=== PATIENT | female | born 1985 | race Caucasian/White ===

== ENCOUNTER 2017-02-16 23:38 | Inpatient (IN) ==
[2017-02-17 00:24] LABS: Basophils # 0.1 K/mcL (0.0-0.2); Basophils % 0.4 %; Eosinophils % 0.3 %; Hemoglobin 14.5 g/dL (11.5-15.4); Immature Granulocytes % 0.9 % (0-4); Immature Platelets 4.4 % (1.1-6.1); Lymphocytes # 3.4 K/mcL (0.6-4.6); Lymphocytes % 22.6 %; Mean Corpuscular HGB Conc 33.7 g/dL (31.6-35.5); Mean Corpuscular Hemoglobin 28.6 pg (28.0-33.3); Mean Corpuscular Volume 84.8 fL (83.0-100.0); Mean Platelet Volume 9.8 fL (9.4-12.4); Monocytes # 0.7 K/mcL (0.0-1.3); Monocytes % 4.5 %; Neutrophils # 10.7 K/mcL (1.6-8.9); Platelet Count 259 K/mcL (140-400); Red Blood Count 5.07 M/mcL (3.82-4.97); Red Cell Distribution Width 12.6 % (11.5-14.5); Segmented Neutrophils % 71.3 %
[2017-02-17 00:39] LABS: Alanine Aminotransferase 15 Units/L (0-55); Albumin 3.4 g/dL (3.5-5.0); Albumin/Globulin Ratio 0.9 (1.1-2.2); Alkaline Phosphatase 116 Units/L (38-126); Aspartate Amino Transferase 12 Units/L (5-34); BUN/Creatinine Ratio 11 (6-26); Bilirubin,Total 0.2 mg/dL (0.2-1.2); Blood Urea Nitrogen 8 mg/dL (7-20); Calcium 9.1 mg/dL (8.6-10.8); Carbon Dioxide 25 mEq/L (19-29); Chloride 104 mEq/L (98-109); Globulin 3.6 g/dL (2.4-3.5); Glucose 107 mg/dL (70-99); Osmolality,Calculated 283 (280-300); Potassium 3.3 mEq/L (3.5-4.5); Sodium 137 mEq/L (136-145); eGFR For African Americans > 60 (> 60); eGFR For Non-African Americans > 60 (> 60)
[2017-02-17 00:55] LABS: Acetaminophen < 1.0 mcg/mL (10-30); Ethanol < 10 mg/dL (0-10); Salicylate < 5.0 mg/dL (15-30)
[2017-02-17] MEDS ORDERED: *HR* LORazepam 0.5 MG TABLET PO ONE (02:10)
--- NOTE | 2017-02-17 02:13 | Emergency Department Note ---
Disposition Clinical Impression: Suicidal ideation Disposition: Admitted As Inpatient Condition: Fair Psych HPI - General Chief Complaint: ED Psychiatric Symptoms Stated Complaint: depression Time Seen by Provider: 02/17/17 01:43 Source: patient Mode of arrival: private vehicle Limitations: no limitations Nursing Notes Reviewed: Yes Vital Signs Reviewed: Yes - History of Present Illness Pt complaint: suicidal ideation, feels depressed, anxiety Onset (ago): week(s) Duration: constant, getting worse History of similar episodes: Yes Improves with: none Worsens with: none Context: significant life stressor Alleged intoxication: No Associated Psychiatric Symptoms: depression, suicidal ideation, racing thoughts , anxiety Associated symptoms: Reports: denies other symptoms. Denies: confusion, headache, shortness of breath, nausea, vomiting, syncope, insomnia Traumatic symptoms: denies traumatic injury Treatments prior to arrival: none Self harm or harm to others: admits thoughts of self harm, denies having a plan - Related Data Home Medications Medication Instructions Recorded Confirmed Mirtazapine [Remeron] 15 mg PO HS 02/17/17 02/17/17 Allergies Allergy/AdvReac Type Severity Reaction Status Date / Time codeine Allergy Swelling Verified 02/16/17 23:58 of Lip/Tongue/Throat All systems ED: reviewed and negative except as stated. Constitutional: Denies: fever, chills, night sweats Eyes: Denies: vision change Cardiovascular: Denies: chest pain Respiratory: Denies: dyspnea Gastrointestinal: Denies: abdominal pain, nausea, vomiting, diarrhea Genitourinary: Denies: dysuria Musculoskeletal: Denies: back pain, neck pain, joint swelling, arthralgia Integumentary: Denies: rash Neurological: Denies: headache, confusion, abnormal gait, vertigo Psychiatric: Reports: as per HPI, anxiety, depression, suicidal thoughts Hematological/Lymphatic: Denies: easy bleeding, easy bruising Past Medical History - Past Medical History Attestation: Yes The following information was validated with the patient. Source: patient Medical history: Reports: diabetes Psychiatric history: Reports: anxiety, bipolar, depression, panic disorder, PTSD , other - Social History Smoking Status: Current every day smoker Smokeless Tobacco Status: No Alcohol use: Reports: none Drug use: Reports: none Physical Exam - General Limitations: no limitations General appearance: alert, in no apparent distress, anxious - Head Head exam: atraumatic, normocephalic, normal inspection - Eye Eye exam: Present: normal appearance, PERRL. Absent: scleral icterus, conjunctival injection, periorbital swelling - ENT ENT exam: normal exam, normal oropharynx, mucous membranes moist - Neck Neck exam: Present: normal inspection, full ROM, trachea midline. Absent: meningismus - Chest Chest inspection: Present: normal inspection - Respiratory Respiratory exam: Present: normal lung sounds bilaterally. Absent: respiratory distress - Cardiovascular Cardiovascular exam: Present: regular rate, normal rhythm, normal heart sounds - Extremities Exam Extremities exam: Present: normal inspection - Back Exam Back exam: Present: normal inspection, full ROM - Neurological Exam Neurological exam: Present: alert, oriented X3, CN II-XII intact, normal gait - Psychiatric Psychiatric exam: Present: normal affect, depressed, anxious - Skin Skin exam: Present: warm, dry, intact, normal color Course Course Narrative: Patient is depressed, tearful, anxious, and also seems a bit paranoid. She was brought in by her cousin for evaluation of suicidal ideation. Patient has a history of depression and has been admitted at a hospital in [place] when she used to live there. She does not currently take medications for depression but states that she has taken them in the past. She states that she stopped taking them because they did not work. Her current significant life stressor is that her of 10 years kicked her out of the house along with their 1- year-old daughter for allegedly cheating on him. Patient states that she has not been unfaithful. She states that she is very angry and depressed. She has had thoughts of hurting herself. She does not describe a specific plan to me. She seems somewhat paranoid and states, "I do not want people looking at me." She is very anxious about any men entering her room and states, "I do not want anyone to touch me." She intermittently makes eye contact and is very tearful and often has a hard time explaining things due to crying. Physical exam is unremarkable. Vitals are normal. Labs have been ordered. Patient has also been seen by Dr. Navneet Bazan. She agrees with the assessment and plan. 1A has been consulted. Patient does have mild leukocytosis along with pyuria, however, she also has many squamous epithelial cells in the urine sample. A culture has been ordered along with a dose of Rocephin. Patient denies dysuria , hematuria, increased urinary frequency or urgency, which also denies abdominal pain and has had no fever, chills, nausea or vomiting. Thus, I do not think that the bacteriuria is the cause of her depression, or suicidal ideation. - Consultations Consultation #1: 1A consulted Time: 03:07 Vital Signs Temperature 97.8 F 02/16/17 23:58 Pulse Rate 72 02/16/17 23:58 Respiratory Rate 20 02/16/17 23:58 Blood Pressure 120/75 02/16/17 23:58 O2 Sat by Pulse Oximetry 97 02/16/17 23:58 Temperature 97.8 F 02/16/17 23:58 Pulse Rate 72 02/16/17 23:58 Respiratory Rate 0 02/17/17 04:21 Blood Pressure 0/0 02/17/17 04:21 O2 Sat by Pulse Oximetry 97 02/16/17 23:58 Oxygen Delivery Oxygen Delivery Room Air Psych - Lab Data Lab results reviewed: Yes I reviewed the patient's lab results. Result diagrams: 02/17/17 00:16 02/17/17 00:16 Lab Results 02/17/17 02/17/17 02/17/17 Range/Units 00:16 00:16 02:25 WBC 15.0 H (4.3-11.1) K/mcL RBC 5.07 H (3.82-4.97) M/mcL Hgb 14.5 (11.5-15.4) g/dL Hct 43.0 (35.3-44.9) % MCV 84.8 (83.0-100.0) fL MCH 28.6 (28.0-33.3) pg MCHC 33.7 (31.6-35.5) g/dL RDW 12.6 (11.5-14.5) % Plt Count 259 (140-400) K/mcL MPV 9.8 (9.4-12.4) fL Immature Gran % 0.9 (0-4) % Seg Neutrophils % 71.3 % Lymphocytes % 22.6 % Monocytes % 4.5 % Eosinophils % 0.3 % Basophils % 0.4 % Neutrophils # 10.7 H (1.6-8.9) K/mcL Lymphocytes # 3.4 (0.6-4.6) K/mcL Monocytes # 0.7 (0.0-1.3) K/mcL Eosinophils # 0.0 (0.0-0.6) K/mcL Basophils # 0.1 (0.0-0.2) K/mcL Immature Plt Fraction 4.4 (1.1-6.1) % Sodium 137 (136-145) mEq/L Potassium 3.3 L (3.5-4.5) mEq/L Chloride 104 (98-109) mEq/L Carbon Dioxide 25 (19-29) mEq/L BUN 8 (7-20) mg/dL Creatinine 0.74 (0.57-1.11) mg/dL Est GFR ( Amer) > 60 (> 60) Est GFR (Non-Af Amer) > 60 (> 60) BUN/Creatinine Ratio 11 (6-26) Glucose 107 H (70-99) mg/dL Calculated Osmolality 283 (280-300) Calcium 9.1 (8.6-10.8) mg/dL Total Bilirubin 0.2 (0.2-1.2) mg/dL AST 12 (5-34) Units/L ALT 15 (0-55) Units/L Alkaline Phosphatase 116 (38-126) Units/L Serum Total Protein 7.0 (6.0-8.3) g/dL Albumin 3.4 L (3.5-5.0) g/dL Globulin 3.6 H (2.4-3.5) g/dL Albumin/Globulin Ratio 0.9 L (1.1-2.2) TSH 0.580 (0.350-4.840) mcIU/mL Urine Color Yellow (Yellow) Urine Clarity Cloudy A (Clear) Urine pH 6.5 (5.0-8.0) pH Units Ur Specific [place] 1.005 L (1.010-1.025) Urine Protein Negative (Neg-Trace) mg/dL Urine Glucose (UA) Normal (Normal) mg/dL Urine Ketones Negative (Negative) mg/dL Urine Blood Negative (Negative) Urine Nitrite Negative (Negative) Urine Bilirubin Negative (Negative) Urine Urobilinogen Normal (Normal) mg/dL Ur Leukocyte Esterase Large H (Negative) Urine Microscopic RBC 0-3 (0-3) per hpf Urine Microscopic WBC 30-50 H (0-3) per hpf Ur Squamous Epith Cells Many H (None-Few) per lpf Urine Bacteria Moderate H (None-Few) per hpf Hyaline Casts None Seen (None-Few) per lpf Ur Culture Indicated? YES A (NO) Urine Test (Negative) Salicylates < 5.0 L (15-30) mg/dL Urine Opiates Screen (Yhkosv=919) ng/mL Acetaminophen < 1.0 L (10-30) mcg/mL Ur Barbiturates Screen (Myhoxw=548) ng/mL Ur Phencyclidine Scrn (Cutoff=25) ng/mL Ur Amphetamines Screen (Uuldbf=1685) ng/mL U Benzodiazepines Scrn (Xpaepj=569) ng/mL Urine Cocaine Screen (Cutoff= 300) ng/mL U Marijuana (THC) Screen (Cutoff = 50) ng/mL Ethyl Alcohol < 10 (0-10) mg/dL 02/17/17 02/17/17 Range/Units 02:25 02:25 WBC (4.3-11.1) K/mcL RBC (3.82-4.97) M/mcL Hgb (11.5-15.4) g/dL Hct (35.3-44.9) % MCV (83.0-100.0) fL MCH (28.0-33.3) pg MCHC (31.6-35.5) g/dL RDW (11.5-14.5) % Plt Count (140-400) K/mcL MPV (9.4-12.4) fL Immature Gran % (0-4) % Seg Neutrophils % % Lymphocytes % % Monocytes % % Eosinophils % % Basophils % % Neutrophils # (1.6-8.9) K/mcL Lymphocytes # (0.6-4.6) K/mcL Monocytes # (0.0-1.3) K/mcL Eosinophils # (0.0-0.6) K/mcL Basophils # (0.0-0.2) K/mcL Immature Plt Fraction (1.1-6.1) % Sodium (136-145) mEq/L Potassium (3.5-4.5) mEq/L Chloride (98-109) mEq/L Carbon Dioxide (19-29) mEq/L BUN (7-20) mg/dL Creatinine (0.57-1.11) mg/dL Est GFR ( Amer) (> 60) Est GFR (Non-Af Amer) (> 60) BUN/Creatinine Ratio (6-26) Glucose (70-99) mg/dL Calculated Osmolality (280-300) Calcium (8.6-10.8) mg/dL Total Bilirubin (0.2-1.2) mg/dL AST (5-34) Units/L ALT (0-55) Units/L Alkaline Phosphatase (38-126) Units/L Serum Total Protein (6.0-8.3) g/dL Albumin (3.5-5.0) g/dL Globulin (2.4-3.5) g/dL Albumin/Globulin Ratio (1.1-2.2) TSH (0.350-4.840) mcIU/mL Urine Color (Yellow) Urine Clarity (Clear) Urine pH (5.0-8.0) pH Units Ur Specific [place] (1.010-1.025) Urine Protein (Neg-Trace) mg/dL Urine Glucose (UA) (Normal) mg/dL Urine Ketones (Negative) mg/dL Urine Blood (Negative) Urine Nitrite (Negative) Urine Bilirubin (Negative) Urine Urobilinogen (Normal) mg/dL Ur Leukocyte Esterase (Negative) Urine Microscopic RBC (0-3) per hpf Urine Microscopic WBC (0-3) per hpf Ur Squamous Epith Cells (None-Few) per lpf Urine Bacteria (None-Few) per hpf Hyaline Casts (None-Few) per lpf Ur Culture Indicated? (NO) Urine Test Negative (Negative) Salicylates (15-30) mg/dL Urine Opiates Screen Negative (Flrhmp=709) ng/mL Acetaminophen (10-30) mcg/mL Ur Barbiturates Screen Negative (Xlnzik=526) ng/mL Ur Phencyclidine Scrn Negative (Cutoff=25) ng/mL Ur Amphetamines Screen Negative (Iweqww=6848) ng/mL U Benzodiazepines Scrn Negative (Rvkknd=236) ng/mL Urine Cocaine Screen Negative (Cutoff= 300) ng/mL U Marijuana (THC) Screen Negative (Cutoff = 50) ng/mL Ethyl Alcohol (0-10) mg/dL Psychiatric Medical Clearance - Medical Clearance Checklist Medical History: No Social History Section defined Current Vitals: Last Vital Signs Temp 97.8 F 02/16/17 23:58 Pulse 72 02/16/17 23:58 Resp 0 02/17/17 04:21 BP 0/0 02/17/17 04:21 Pulse Ox 97 02/16/17 23:58 Psychiatric Lab Panel: Drug Levels and Toxicity 02/17/17 02/17/17 00:16 02:25 Urine Opiates Screen Negative Acetaminophen < 1.0 L Ur Barbiturates Screen Negative Ur Phencyclidine Scrn Negative Ur Amphetamines Screen Negative U Benzodiazepines Scrn Negative Urine Cocaine Screen Negative U Marijuana (THC) Screen Negative Ethyl Alcohol < 10 Abnormal Labs: Abnormal lab results WBC 15.0 K/mcL (4.3-11.1) H 02/17/17 00:16 RBC 5.07 M/mcL (3.82-4.97) H 02/17/17 00:16 Neutrophils # 10.7 K/mcL (1.6-8.9) H 02/17/17 00:16 Potassium 3.3 mEq/L (3.5-4.5) L 02/17/17 00:16 Glucose 107 mg/dL (70-99) H 02/17/17 00:16 Albumin 3.4 g/dL (3.5-5.0) L 02/17/17 00:16 Globulin 3.6 g/dL (2.4-3.5) H 02/17/17 00:16 Albumin/Globulin Ratio 0.9 (1.1-2.2) L 02/17/17 00:16 Urine Clarity Cloudy (Clear) A 02/17/17 02:25 Ur Specific [place] 1.005 (1.010-1.025) L 02/17/17 02:25 Ur Leukocyte Esterase Large (Negative) H 02/17/17 02:25 Urine Microscopic WBC 30-50 per hpf (0-3) H 02/17/17 02:25 Ur Squamous Epith Cells Many per lpf (None-Few) H 02/17/17 02:25 Urine Bacteria Moderate per hpf (None-Few) H 02/17/17 02:25 Ur Culture Indicated? YES (NO) A 02/17/17 02:25 Salicylates < 5.0 mg/dL (15-30) L 02/17/17 00:16 Acetaminophen < 1.0 mcg/mL (10-30) L 02/17/17 00:16 Statement of Medical Clearance: I have evaluated the patient, reviewed diagnostic information, and certify that the patient's medical condition is sufficiently stable that transfer to the psychiatric unit does not pose a significant risk of deterioration. Attestation Statement - Attestation Attestation: I personally interviewed and examined this patient and my medical decision- making was reviewed with the GIL, Kaya Rome. I agree with the documented findings, disposition and treatment plan as described except to the extent set forth below. Presents to the emergency department with complaints of suicidal ideation tonight and increased depression. Patient has a history of bipolar disorder as well as prior depression. Patient has had a history of prior psychiatric hospitalizations and evaluations in [place]. She is currently staying with friends in [place] due to being kicked out of her home by her ex- approximately 6 weeks ago. Patient had increased depression since that time and comes here for evaluation for help with suicidal ideation. She has no physical complaints here. I agree with her physical exam findings as documented. Patient's labs are unremarkable with the exception of a mild leukocytosis. Patient is medically cleared for further psychiatric evaluation. We are awaiting one a evaluation and recommendations for final disposition.
[2017-02-17 02:48] LABS: Bilirubin,Urine Negative (Negative); Blood,Urine Negative (Negative); Clarity,Urine Cloudy (Clear); Color,Urine Yellow (Yellow); Glucose,Urine (UA) Normal (Normal); Ketones,Urine Negative (Negative); Leukocyte Esterase,Urine Large (Negative); Nitrite,Urine Negative (Negative); PH,Urine 6.5 pH Units (5.0-8.0); Protein,Urine Negative (Neg-Trace); Specific Gravity,Urine 1.005 (1.010-1.025); Urobilinogen,Urine Normal (Normal)
[2017-02-17 02:50] LABS: Bacteria,Urine Moderate per hpf (None-Few); Hyaline Casts,Urine None Seen per lpf (None-Few); RBC,Urine 0-3 per hpf (0-3); Squamous Epithelial Cell,Urine Many per lpf (None-Few); WBC,Urine 30-50 per hpf (0-3)
[2017-02-17 02:54] LABS: Amphetamine Screen,Urine Negative ng/mL (Cutoff=1000); Barbiturate Screen,Urine Negative ng/mL (Cutoff=200); Benzodiazepines Screen,Urine Negative ng/mL (Cutoff=200); Cannabinoid Screen,Urine Negative ng/mL (Cutoff = 50); Cocaine Screen,Urine Negative ng/mL (Cutoff= 300); Opiate Screen,Urine Negative ng/mL (Cutoff=300); Phencyclidine Screen,Urine Negative ng/mL (Cutoff=25)
[2017-02-17] MEDS ORDERED: CefTRIAXone 1,000 MG VIAL IM ONE (03:05)
[2017-02-17] MEDS ORDERED: Lidocaine -MPF 1% 2 ML VIAL ONE (04:09)
[2017-02-17] MEDS ORDERED: *HR* LORazepam 2 MG/ML VIAL IM PRN (04:18)
[2017-02-17] MEDS ORDERED: MOM Conc 10 ML UD.LIQ PO PRN (04:18)
[2017-02-17] MEDS ORDERED: *HR* LORazepam 1 MG TABLET PO PRN (04:18)
[2017-02-17] MEDS ORDERED: Haloperidol Lactate 5 MG/ML VIAL IM PRN (04:18)
[2017-02-17] MEDS ORDERED: Mag Hydrox/Al Hydrox/Simeth 30 ML UDC PO PRN (04:18)
[2017-02-17] MEDS: Ibuprofen 400 MG TABLET PO PRN (04:42)
--- NOTE | 2017-02-17 10:43 | Psychiatry History & Physical ---
Date of Encounter: 02/17/17 Time of Encounter: 10:00 History of Present Illness Patient Stated Chief Complaint: Depressed and suicidal Medicare Admission Attestation: For traditional Medicare patients the provided hospital inpatient services are reasonable and necessary and in the case of services not specified as inpatient -only under 42 CFR 419.22 (n), that they are appropriately provided as inpatient services in accordance 42 CFR 412.3. For Critical Access Hospital the patient may reasonably be expected to be discharged or transferred to a hospital within 96 hours after admission to the Critical Access Hospital. Admitted From: Emergency Dept History of Present Illness: Ms. Aguillon is a 31 year old female admitted from the emergency department for depression and suicidal ideation. Patient reported that her kicked her out of the house was one year old daughter on Mother's Day and accused her of cheating on him. She had a history of psychiatric treatment since childhood, she carries a diagnosis of major depression, bipolar disorder, and anxiety disorder and panic disorder. Patient is followed as an outpatient at [facility] and [place]. She had a history of hospitalization at [facility] 2 years ago for depression and another admission at [facility]. Patient is currently on no medication. In the past she was treated with different medication including lithium and Depakote Remeron and others. She will continue to take Remeron at this time. She is a high school graduate and currently unemployed and lives with her cousin. She denies any use of alcohol or drugs. She smokes one pack per day cigarettes and several caffeinated beverages. Past Med Surg Social Fam HX - Past Medical History Medical history: diabetes - Past Psychiatric History Psychiatric history: Reports: bipolar, depression, panic disorder, previous psychiatric hospitalization - Social History Smoking Status: Current every day smoker Smokeless Tobacco Status: No Alcohol use: none Drug use: none Medications & Allergies Mirtazapine [Remeron] 15 mg PO HS 02/17/17 [History] Allergies codeine Allergy (Verified 02/16/17 23:58) Swelling of Lip/Tongue/Throat Review of Systems Psychiatric: Reports: depression, anxiety, suicidal ideation, irritability, mood swings Mental Status Exam Patient orientation: Yes Person, Yes Time, Yes Place Level of alertness: Alert Patient appearance: Appropriate, Well Groomed, Average Behavior: calm, cooperative, anxious, guarded Psychomotor activity: Increased Eye contact: Minimal Contact Mood description: Anxious, Labile, Irritable Affect description: congruent with mood, labile Speech pattern: Normal rate, Normal rhythm, Normal tone Speech volume: Normal Thought process: Linear, Goal Oriented Thought content: Yes Suicidal ideation, No Homicidal ideation, No Overt delusions Perceptual disturbances: No Auditory hallucinations, No Visual hallucinations Attention span: Capable of Focused Attention Memory description: Grossly Intact Patient reliability: Reliable Historian Intelligence estimate: Average Judgment: Limited Insight: Partial Results - Vital Signs Vital signs: Temp Pulse Resp BP Pulse Ox 97.8 F 72 0 0/0 97 02/16/17 23:58 02/16/17 23:58 02/17/17 04:21 02/17/17 04:21 02/16/17 23:58 - Labs Labs: Laboratory Last Values WBC 15.0 K/mcL (4.3-11.1) H 02/17/17 00:16 RBC 5.07 M/mcL (3.82-4.97) H 02/17/17 00:16 Hgb 14.5 g/dL (11.5-15.4) 02/17/17 00:16 Hct 43.0 % (35.3-44.9) 02/17/17 00:16 MCV 84.8 fL (83.0-100.0) 02/17/17 00:16 MCH 28.6 pg (28.0-33.3) 02/17/17 00:16 MCHC 33.7 g/dL (31.6-35.5) 02/17/17 00:16 RDW 12.6 % (11.5-14.5) 02/17/17 00:16 Plt Count 259 K/mcL (140-400) 02/17/17 00:16 MPV 9.8 fL (9.4-12.4) 02/17/17 00:16 Immature Gran % 0.9 % (0-4) 02/17/17 00:16 Seg Neutrophils % 71.3 % 02/17/17 00:16 Lymphocytes % 22.6 % 02/17/17 00:16 Monocytes % 4.5 % 02/17/17 00:16 Eosinophils % 0.3 % 02/17/17 00:16 Basophils % 0.4 % 02/17/17 00:16 Neutrophils # 10.7 K/mcL (1.6-8.9) H 02/17/17 00:16 Lymphocytes # 3.4 K/mcL (0.6-4.6) 02/17/17 00:16 Monocytes # 0.7 K/mcL (0.0-1.3) 02/17/17 00:16 Eosinophils # 0.0 K/mcL (0.0-0.6) 02/17/17 00:16 Basophils # 0.1 K/mcL (0.0-0.2) 02/17/17 00:16 Immature Plt Fraction 4.4 % (1.1-6.1) 02/17/17 00:16 Sodium 137 mEq/L (136-145) 02/17/17 00:16 Potassium 3.3 mEq/L (3.5-4.5) L 02/17/17 00:16 Chloride 104 mEq/L (98-109) 02/17/17 00:16 Carbon Dioxide 25 mEq/L (19-29) 02/17/17 00:16 BUN 8 mg/dL (7-20) 02/17/17 00:16 Creatinine 0.74 mg/dL (0.57-1.11) 02/17/17 00:16 Est GFR ( Amer) > 60 (> 60) 02/17/17 00:16 Est GFR (Non-Af Amer) > 60 (> 60) 02/17/17 00:16 BUN/Creatinine Ratio 11 (6-26) 02/17/17 00:16 Glucose 107 mg/dL (70-99) H 02/17/17 00:16 Calculated Osmolality 283 (280-300) 02/17/17 00:16 Calcium 9.1 mg/dL (8.6-10.8) 02/17/17 00:16 Total Bilirubin 0.2 mg/dL (0.2-1.2) 02/17/17 00:16 AST 12 Units/L (5-34) 02/17/17 00:16 ALT 15 Units/L (0-55) 02/17/17 00:16 Alkaline Phosphatase 116 Units/L (38-126) 02/17/17 00:16 Serum Total Protein 7.0 g/dL (6.0-8.3) 02/17/17 00:16 Albumin 3.4 g/dL (3.5-5.0) L 02/17/17 00:16 Globulin 3.6 g/dL (2.4-3.5) H 02/17/17 00:16 Albumin/Globulin Ratio 0.9 (1.1-2.2) L 02/17/17 00:16 TSH 0.580 mcIU/mL (0.350-4.840) 02/17/17 00:16 Urine Color Yellow (Yellow) 02/17/17 02:25 Urine Clarity Cloudy (Clear) A 02/17/17 02:25 Urine pH 6.5 pH Units (5.0-8.0) 02/17/17 02:25 Ur Specific [place] 1.005 (1.010-1.025) L 02/17/17 02:25 Urine Protein Negative mg/dL (Neg-Trace) 02/17/17 02:25 Urine Glucose (UA) Normal mg/dL (Normal) 02/17/17 02:25 Urine Ketones Negative mg/dL (Negative) 02/17/17 02:25 Urine Blood Negative (Negative) 02/17/17 02:25 Urine Nitrite Negative (Negative) 02/17/17 02:25 Urine Bilirubin Negative (Negative) 02/17/17 02:25 Urine Urobilinogen Normal mg/dL (Normal) 02/17/17 02:25 Ur Leukocyte Esterase Large (Negative) H 02/17/17 02:25 Urine Microscopic RBC 0-3 per hpf (0-3) 02/17/17 02:25 Urine Microscopic WBC 30-50 per hpf (0-3) H 02/17/17 02:25 Ur Squamous Epith Cells Many per lpf (None-Few) H 02/17/17 02:25 Urine Bacteria Moderate per hpf (None-Few) H 02/17/17 02:25 Hyaline Casts None Seen per lpf (None-Few) 02/17/17 02:25 Ur Culture Indicated? YES (NO) A 02/17/17 02:25 Urine Test Negative (Negative) 02/17/17 02:25 Salicylates < 5.0 mg/dL (15-30) L 02/17/17 00:16 Urine Opiates Screen Negative ng/mL (Xfdpmw=134) 02/17/17 02:25 Acetaminophen < 1.0 mcg/mL (10-30) L 02/17/17 00:16 Ur Barbiturates Screen Negative ng/mL (Nbkeiq=315) 02/17/17 02:25 Ur Phencyclidine Scrn Negative ng/mL (Cutoff=25) 02/17/17 02:25 Ur Amphetamines Screen Negative ng/mL (Ejeirx=4423) 02/17/17 02:25 U Benzodiazepines Scrn Negative ng/mL (Fwcgpm=622) 02/17/17 02:25 Urine Cocaine Screen Negative ng/mL (Cutoff= 300) 02/17/17 02:25 U Marijuana (THC) Screen Negative ng/mL (Cutoff = 50) 02/17/17 02:25 Ethyl Alcohol < 10 mg/dL (0-10) 02/17/17 00:16 Assessment and Plan (1) Bipolar disorder, now depressed Current visit: Yes Status: Acute Plan: Admit inpatient for safety and stabilization, Close observation, Suicide Precautions per unit protocol, Encourage participation in unit milieu, Group Therapy, Monitor sleep, Monitor appetite Additional Plan: Will add mood stabilizer gabapentin 100 mg twice a day. Risks and side effects were discussed patient is agreeable and will monitor Risks, benefits, side effects, alternatives discussed w/pt: Yes Patient agreeable to treatment: Yes Estimated Length of Stay (Days): 3 Qualifiers: Current episode severity: severe Psychotic features: without psychotic features Qualified Code(s): F31.4 - Bipolar disorder, current episode depressed, severe, without psychotic features
[2017-02-17] MEDS: Gabapentin 100 MG CAPSULE PO SCH ×2 (11:37→20:42)
[2017-02-17] MEDS: hydrOXYzine pamoate 25 MG CAPSULE PO PRN (15:34)
[2017-02-17] MEDS: traZODone 50 MG TABLET PO PRN (20:42)
[2017-02-18] MEDS: Gabapentin 100 MG CAPSULE PO SCH ×2 (08:37→21:22)
--- NOTE | 2017-02-18 13:30 | Psychiatry Progress Note ---
Date of Encounter: 02/18/17 Time of Encounter: 12:30 Subjective Interval history: Patient is seen for follow-up. She reports feeling less anxious and her sleep improved, energy level is better. She tolerated the new medication gabapentin and denies any side effects. She denies suicidal ideation and she has plans to move back to [place] and continue treatment and follow-up. Review of Systems Psychiatric: Reports: depression, anxiety, suicidal ideation, irritability, mood swings Objective: Exam Patient orientation: Yes Person, Yes Time, Yes Place Level of alertness: Alert Patient appearance: Appropriate, Well Groomed Behavior: calm, cooperative Psychomotor activity: Normal Eye contact: Maintains Eye Contact Mood description: Euthymic/stable, Anxious Affect description: congruent with mood, full range Speech pattern: Normal rate, Normal rhythm, Normal tone Speech volume: Normal Thought process: Linear, Goal Oriented Thought content: No Suicidal ideation, No Homicidal ideation, No Overt delusions Perceptual disturbances: No Auditory hallucinations, No Visual hallucinations Judgment: Fair Insight: Partial Results - Vital Signs Vital Signs: Temp Pulse Resp BP Pulse Ox 97.2 F L 79 18 111/64 97 02/18/17 09:00 02/18/17 09:00 02/18/17 09:00 02/18/17 09:00 02/16/17 23:58 Assessment and Plan (1) Bipolar disorder, now depressed Current visit: Yes Status: Acute Plan: Continue hospitalization, Close observation, Suicide Precautions per unit protocol, Encourage participation in unit milieu, Group Therapy, Monitor sleep, Monitor appetite Risks, benefits, side effects, alternatives discussed w/pt: Yes Patient agreeable to treatment: Yes Qualifiers: Current episode severity: severe Psychotic features: without psychotic features Qualified Code(s): F31.4 - Bipolar disorder, current episode depressed, severe, without psychotic features Consult Discharge Plan - Plan Referrals: NO,PCP [Primary Care Provider] -
[2017-02-18] MEDS ORDERED: Mirtazapine 15 MG TABLET PO SCH (21:00)
[2017-02-18] MEDS: Ibuprofen 400 MG TABLET PO PRN (21:22)
[2017-02-18] MEDS: traZODone 50 MG TABLET PO PRN (21:22)
[2017-02-18] MEDS: hydrOXYzine pamoate 25 MG CAPSULE PO PRN (21:23)
[2017-02-19] MEDS: Gabapentin 100 MG CAPSULE PO SCH (08:49)
[2017-02-19] MEDS: Ibuprofen 400 MG TABLET PO PRN (08:50)
[2017-02-19 09:21] VITALS: BP 118/70
--- NOTE | 2017-02-19 12:58 | Discharge Summary ---
Date of Encounter: 02/19/17 Time of Encounter: 12:30 Diagnosis - Discharge Diagnosis (1) Bipolar disorder, now depressed Status: Acute Qualifiers: Current episode severity: severe Psychotic features: without psychotic features Qualified Code(s): F31.4 - Bipolar disorder, current episode depressed, severe, without psychotic features Medications - Discharge Medications Prescriptions: Gabapentin [Neurontin] 100 mg PO BID #60 capsule Mirtazapine [Remeron] 30 mg PO HS #30 tablet Gabapentin [Neurontin] 100 mg PO BID #60 capsule 02/19/17 [Rx] Mirtazapine [Remeron] 30 mg PO HS #30 tablet 02/19/17 [Rx] Allergies codeine Allergy (Verified 02/16/17 23:58) Swelling of Lip/Tongue/Throat Provider Date of admission: 02/17/17 04:15 Primary care physician: PCP NO Consults: 02/17/17 11:17 Consult to Pastoral Services [CONS] Routine Comment: Discharging clinician: Myke Kohler Assessment and Plan - Patient/Caregiver Discharge Instructions Activity: resume usual activities as tolerated Diet: regular diet Additional Instructions: The 06/04 mental health crisis hotline for [facility] is [phone]. - Follow up Plan Follow up with: [facility] [Other] (You will see counselor, Marky Ramirez on 03/02 at 1:00pm. You will see ,psychiatrist, on .) Functional capacity at discharge: independent ambulation Overall status at discharge: Stable Disposition: Home, Self-Care Hospital Course Hospital course: Ms. Aguillon is a 31 year old female admitted for suicidal ideation. Please see H& P On the unit patient was displaying depressed mood, mood swings, irritability and poor sleep. She was started on her medication mirtazapine and we added gabapentin 100 mg twice a day. Patient responded well to medication and reported improved sleep and less irritability she participated in groups and she denies suicidal ideation. Discharge plans and follow-up was completed by social work. On discharge patient was medically stable nonsuicidal and future oriented. - Time Spent with Patient Total time spent providing and/or coordinating discharge services: Greater than 30 minutes Quality - Multiple Antipsychotics Patient discharged on 2 or more antipsychotic medications: No Procedures - Procedures Procedures: Medication Management, Crisis Stabilization, Supportive Therapy, Group Therapy, Psychoeducational Therapy
== END 2017-02-19 15:30 | disposition home or self-care (01) | DRG 885 ==
LOC: EMEROO 23:38 → 1ANU 02-17 04:15
PROVIDERS: ADMIT Psychiatry & Neurology Psychiatry; ATTEND Psychiatry & Neurology Psychiatry